=== PATIENT | female | born 1995 | race Caucasian/White ===

== ENCOUNTER 2024-08-24 20:29 | Emergency (ER) | payer BC, MEDICAID ==
[2024-08-24] MEDS ORDERED: Sodium Chloride 0.9% 10 ML Syringe FLUSH PRN (20:41)
[2024-08-24 21:05] LABS: HEMOGLOBIN 15.4 g/dL (11.7-15.5); RED BLOOD CELL COUNT 5.58 M/uL (3.77-5.09); WHITE BLOOD CELL COUNT,WBC 9.4 K/uL (4.0-10.2)
[2024-08-24 21:06] LABS: BASOPHILS ABSOLUTE AUTO 0.06 K/uL (0.00-0.20); BASOPHILS PERCENT AUTO 0.6 % (0.0-2.0); EOSINOPHILS ABSOLUTE AUTO 0.31 K/uL (0.00-0.50); EOSINOPHILS PERCENT AUTO 3.3 % (0.0-5.0); HEMATOCRIT 46.2 % (34.0-46.0); IMMATURE GRAN PERCENT AUTO 0.1 % (0.0-0.4); LYMPHOCYTES ABSOLUTE AUTO 3.01 K/uL (0.50-3.50); LYMPHOCYTES PERCENT AUTO 32.1 % (10.0-50.0); MEAN CORPUSCULAR HEMOGLOBIN 27.6 pg (28.2-33.3); MEAN CORPUSCULAR HGB CONC 33.3 g/dL (31.7-36.0); MEAN CORPUSCULAR VOLUME 82.8 fL (84.0-98.0); MONOCYTES ABSOLUTE AUTO 0.64 K/uL (0.00-1.00); MONOCYTES PERCENT AUTO 6.8 % (2.0-14.0); NEUTROPHILS ABSOLUTE AUTO 5.36 K/uL (1.40-7.00); NEUTROPHILS PERCENT AUTO 57.1 % (45.0-80.0); PLATELET COUNT,PLT 362 K/uL (150-350); RED CELL DISTRIBUTION WIDTH 12.7 % (11.2-14.1)
[2024-08-24 21:07] LABS: IMMATURE GRAN ABSOLUTE AUTO 0.01 10^3/uL (0.00-0.04)
[2024-08-24 21:17] LABS: ANION GAP 7.5 meq/L (7-15); C-REACTIVE PROTEIN 0.39 mg/dL (0.05-0.30); CALCIUM 9.1 mg/dL (8.5-10.1); CARBON DIOXIDE,CO2 26.5 mmol/L (21.0-32.0); CREATININE 0.93 mg/dL (0.51-1.17); EST CRCL DRUG DOSING (CG) 64.69 mL/min; MAGNESIUM 1.9 mg/dL (1.8-2.4); POTASSIUM,K 3.6 mmol/L (3.5-5.1)
[2024-08-24 21:18] LABS: PROTHROMBIN TIME 10.3 SEC (9.0-11.1)
[2024-08-24] MEDS: Iopamidol 612 MG/ML 100 ML Bottle IVPUSH ONE (21:50)
[2024-08-24] MEDS: cloNIDine 0.1 MG Tab PO ONE (23:01)
[2024-08-24 23:21] VITALS: BP 148/112; PULSE 76
== END 2024-08-24 23:17 | disposition home or self-care (01) ==
LOC: LL.ED 20:29
DX: R10.31 Right lower quadrant pain (principal); R10.32 Left lower quadrant pain; I10 Essential (primary) hypertension; K21.9 Gastro-esophageal reflux disease without esophagitis; Z88.5 Allergy status to narcotic agent; Z91.040 Latex allergy status
CPT/HCPCS: 36415; 74177; 80048; 83690; 83735; 84703; 85025; 85610; 86140; 99284; A9270-GY; Q9967